=== PATIENT | male | born 1950 | race American Indian/Alaskan Native ===

== ENCOUNTER 2022-02-22 13:03 | Outpatient (CLI) | payer MEDICARE ==
[2022-02-22] MEDS ORDERED: LIDOCAINE (4%) 40 MG/ML TOPICAL SOLN 50 ML BOTTLE TP ONE (13:52)
== END 2022-02-22 13:04 | disposition home or self-care (01) ==
LOC: WOUND 13:03
PROVIDERS: ATTEND Surgery
DX: E11.621 Type 2 diabetes mellitus with foot ulcer (principal); I70.235 Atherosclerosis of native arteries of right leg with ulceration of other part of foot; L97.512 Non-pressure chronic ulcer of other part of right foot with fat layer exposed; E11.622 Type 2 diabetes mellitus with other skin ulcer; I70.233 Atherosclerosis of native arteries of right leg with ulceration of ankle; L97.312 Non-pressure chronic ulcer of right ankle with fat layer exposed; I70.238 Atherosclerosis of native arteries of right leg with ulceration of other part of lower leg; L97.812 Non-pressure chronic ulcer of other part of right lower leg with fat layer exposed; I70.234 Atherosclerosis of native arteries of right leg with ulceration of heel and midfoot; L97.412 Non-pressure chronic ulcer of right heel and midfoot with fat layer exposed; I70.243 Atherosclerosis of native arteries of left leg with ulceration of ankle; L97.322 Non-pressure chronic ulcer of left ankle with fat layer exposed; I70.245 Atherosclerosis of native arteries of left leg with ulceration of other part of foot; L97.522 Non-pressure chronic ulcer of other part of left foot with fat layer exposed; I70.244 Atherosclerosis of native arteries of left leg with ulceration of heel and midfoot; L97.422 Non-pressure chronic ulcer of left heel and midfoot with fat layer exposed; L89.510 Pressure ulcer of right ankle, unstageable; L89.610 Pressure ulcer of right heel, unstageable; L89.620 Pressure ulcer of left heel, unstageable; E11.40 Type 2 diabetes mellitus with diabetic neuropathy, unspecified; I48.91 Unspecified atrial fibrillation; N40.0 Benign prostatic hyperplasia without lower urinary tract symptoms; E78.5 Hyperlipidemia, unspecified; Z86.73 Personal history of transient ischemic attack (TIA), and cerebral infarction without residual deficits; Z87.891 Personal history of nicotine dependence; Z79.899 Other long term (current) drug therapy
CPT/HCPCS: 11042; 11045; G0463; 99204

== ENCOUNTER 2022-02-28 10:36 | Outpatient (CLI) | payer MEDICARE ==
--- NOTE | 2022-02-28 15:13 | Vascular Lab Report ---
DUPLEX DOPPLER LOWER EXTREMITY ARTERIAL, BILATERAL INDICATION / CLINICAL INFORMATION: E11.621 Type 2 diabetes mellitus with foot ulcer. TECHNIQUE: Arterial duplex examination of both lower extremities performed using B-mode, color flow a nd spectral Doppler assessment. FINDINGS: RIGHT: Common Femoral Artery: PSV 66 cm/sec. Monophasic waveform. Proximal SFA: PSV 43 cm/sec. Monophasic waveform. Mid SFA: PSV 30 cm/sec. Monophasic waveform. Distal SFA: PSV 47 cm/sec. Monophasic waveform. Popliteal Artery: PSV 104 cm/sec. Monophasic waveform. Posterior Tibial Artery: PSV 19 cm/sec. Monophasic waveform. Dorsalis Pedis Artery: Not visualized secondary to overlying bandages. LEFT: Common Femoral Artery: PSV 422 cm/sec. Monophasic waveform. Proximal SFA: PSV 105 cm/sec. Monophasic waveform. Mid SFA: PSV 35 cm/sec. Monophasic waveform. Distal SFA: PSV 21 cm/sec. Monophasic waveform. Popliteal Artery: PSV 11 cm/sec. Monophasic waveform. Posterior Tibial Artery: PSV 21 cm/sec. Monophasic waveform. Dorsalis Pedis Artery: PSV 9 cm/sec. Monophasic waveform. ADDITIONAL FINDINGS: Significant stenosis noted in the proximal left deep femoral artery. RIGHT DEBBIE: Not calculated. LEFT DEBBIE: Not calculated. IMPRESSION: 1. There is severe atherosclerotic plaque noted throughout both lower extremities. 2. Dampened velocities with monophasic waveforms noted on the right suggesting significant inflow dis ease. 3. Hemodynamically significant stenosis noted in the left common femoral artery with severely elevate d velocity and distal transition to monophasic waveforms. Ankle-Brachial Index (DEBBIE): - Calcified arteries > 1.4 - Normal = 0.9-1.4 - Mild PAD = 0.7-0.89 - Moderate PAD = 0.51-0.69 - Severe PAD < 0.5 Doppler Waveform: - Triphasic is normal. - Biphasic is abnormal if clear transition from triphasic signal along vascular tree. - Monophasic is abnormal. Scribed by: Yoly Gomez RDMS, RVT, [employer] Scribed: 02/28/2022 1:16 PM I have reviewed the images, agree with this report, and edited this report as needed. Signer Name: Donny Gauthier MD Signed: 02/28/2022 3:08 PM Workstation Name: [id number]
== END 2022-02-28 10:37 | disposition home or self-care (01) ==
LOC: VAS 10:36
PROVIDERS: ATTEND Surgery
DX: I70.213 Atherosclerosis of native arteries of extremities with intermittent claudication, bilateral legs (principal); E11.621 Type 2 diabetes mellitus with foot ulcer; L97.512 Non-pressure chronic ulcer of other part of right foot with fat layer exposed; L97.522 Non-pressure chronic ulcer of other part of left foot with fat layer exposed
CPT/HCPCS: 36415; 83036; 93925

== ENCOUNTER 2022-03-08 13:15 | Outpatient (CLI) | payer MEDICARE ==
[2022-03-08] MEDS ORDERED: LIDOCAINE (4%) 40 MG/ML TOPICAL SOLN 50 ML BOTTLE TP ONE (13:36)
[2022-03-08] MEDS ORDERED: SODIUM HYPOCHLORITE, DAKIN'S FULL STRENGTH (0.5%) 473 ML TOPICAL SOLN TP ONE (15:12)
== END 2022-03-08 13:16 | disposition home or self-care (01) ==
LOC: WOUND 13:15
PROVIDERS: ATTEND Surgery
DX: E11.621 Type 2 diabetes mellitus with foot ulcer (principal); I70.261 Atherosclerosis of native arteries of extremities with gangrene, right leg; L97.514 Non-pressure chronic ulcer of other part of right foot with necrosis of bone; L97.416 Non-pressure chronic ulcer of right heel and midfoot with bone involvement without evidence of necrosis; E11.622 Type 2 diabetes mellitus with other skin ulcer; L97.312 Non-pressure chronic ulcer of right ankle with fat layer exposed; L89.154 Pressure ulcer of sacral region, stage 4; L89.614 Pressure ulcer of right heel, stage 4; I70.262 Atherosclerosis of native arteries of extremities with gangrene, left leg; L97.522 Non-pressure chronic ulcer of other part of left foot with fat layer exposed; L97.422 Non-pressure chronic ulcer of left heel and midfoot with fat layer exposed; L97.322 Non-pressure chronic ulcer of left ankle with fat layer exposed; L89.624 Pressure ulcer of left heel, stage 4; E11.40 Type 2 diabetes mellitus with diabetic neuropathy, unspecified; I10 Essential (primary) hypertension; E78.5 Hyperlipidemia, unspecified; N40.0 Benign prostatic hyperplasia without lower urinary tract symptoms; I48.91 Unspecified atrial fibrillation; Z86.73 Personal history of transient ischemic attack (TIA), and cerebral infarction without residual deficits; Z87.891 Personal history of nicotine dependence; Z79.899 Other long term (current) drug therapy
CPT/HCPCS: 97602

== ENCOUNTER 2022-03-15 10:30 | Outpatient (CLI) | payer MEDICARE ==
[2022-03-15] MEDS ORDERED: LIDOCAINE (4%) 40 MG/ML TOPICAL SOLN 50 ML BOTTLE TP ONE (10:45)
[2022-03-15] MEDS ORDERED: SODIUM HYPOCHLORITE, DAKIN'S FULL STRENGTH (0.5%) 473 ML TOPICAL SOLN TP ONE (12:12)
== END 2022-03-15 10:31 | disposition home or self-care (01) ==
LOC: WOUND 10:30
PROVIDERS: ATTEND Surgery
DX: E11.621 Type 2 diabetes mellitus with foot ulcer (principal); I70.235 Atherosclerosis of native arteries of right leg with ulceration of other part of foot; L97.512 Non-pressure chronic ulcer of other part of right foot with fat layer exposed; I70.234 Atherosclerosis of native arteries of right leg with ulceration of heel and midfoot; L89.610 Pressure ulcer of right heel, unstageable; L97.412 Non-pressure chronic ulcer of right heel and midfoot with fat layer exposed; I70.245 Atherosclerosis of native arteries of left leg with ulceration of other part of foot; L97.522 Non-pressure chronic ulcer of other part of left foot with fat layer exposed; I70.244 Atherosclerosis of native arteries of left leg with ulceration of heel and midfoot; L89.620 Pressure ulcer of left heel, unstageable; L97.422 Non-pressure chronic ulcer of left heel and midfoot with fat layer exposed; I70.243 Atherosclerosis of native arteries of left leg with ulceration of ankle; E11.622 Type 2 diabetes mellitus with other skin ulcer; I70.233 Atherosclerosis of native arteries of right leg with ulceration of ankle; L89.510 Pressure ulcer of right ankle, unstageable; L97.312 Non-pressure chronic ulcer of right ankle with fat layer exposed; I70.238 Atherosclerosis of native arteries of right leg with ulceration of other part of lower leg; L97.812 Non-pressure chronic ulcer of other part of right lower leg with fat layer exposed; L97.322 Non-pressure chronic ulcer of left ankle with fat layer exposed; E11.40 Type 2 diabetes mellitus with diabetic neuropathy, unspecified; I48.91 Unspecified atrial fibrillation; N40.0 Benign prostatic hyperplasia without lower urinary tract symptoms; I10 Essential (primary) hypertension; E78.5 Hyperlipidemia, unspecified; Z86.73 Personal history of transient ischemic attack (TIA), and cerebral infarction without residual deficits; Z90.49 Acquired absence of other specified parts of digestive tract; Z87.891 Personal history of nicotine dependence; Z79.899 Other long term (current) drug therapy; Z79.4 Long term (current) use of insulin
CPT/HCPCS: 36415; 80048

== ENCOUNTER 2022-03-15 13:20 | Outpatient (CLI) | payer MEDICARE ==
[2022-03-15 16:20] LABS: BUN/Creatinine Ratio 20; Blood Urea Nitrogen 16 mg/dL (9-20); Calcium 9.3 mg/dL (8.4-10.2); Hemolysis Index 4
== END 2022-03-15 13:21 | disposition home or self-care (01) ==
LOC: LAB 13:20
PROVIDERS: ATTEND Surgery
DX: I70.261 Atherosclerosis of native arteries of extremities with gangrene, right leg (principal); I70.262 Atherosclerosis of native arteries of extremities with gangrene, left leg; E11.621 Type 2 diabetes mellitus with foot ulcer; L97.522 Non-pressure chronic ulcer of other part of left foot with fat layer exposed; L97.312 Non-pressure chronic ulcer of right ankle with fat layer exposed; L97.412 Non-pressure chronic ulcer of right heel and midfoot with fat layer exposed; L97.322 Non-pressure chronic ulcer of left ankle with fat layer exposed; L97.422 Non-pressure chronic ulcer of left heel and midfoot with fat layer exposed
CPT/HCPCS: 36415; 80048

== ENCOUNTER 2022-03-22 11:35 | Outpatient (CLI) | payer MEDICARE ==
[2022-03-22] MEDS ORDERED: LIDOCAINE (4%) 40 MG/ML TOPICAL SOLN 50 ML BOTTLE TP ONE (11:42)
[2022-03-22] MEDS ORDERED: SODIUM HYPOCHLORITE, DAKIN'S FULL STRENGTH (0.5%) 473 ML TOPICAL SOLN TP ONE (12:46)
== END 2022-03-22 11:36 | disposition home or self-care (01) ==
LOC: WOUND 11:35
PROVIDERS: ATTEND Surgery
DX: E11.621 Type 2 diabetes mellitus with foot ulcer (principal); I70.261 Atherosclerosis of native arteries of extremities with gangrene, right leg; L97.514 Non-pressure chronic ulcer of other part of right foot with necrosis of bone; L97.416 Non-pressure chronic ulcer of right heel and midfoot with bone involvement without evidence of necrosis; E11.622 Type 2 diabetes mellitus with other skin ulcer; L97.312 Non-pressure chronic ulcer of right ankle with fat layer exposed; L89.514 Pressure ulcer of right ankle, stage 4; L89.614 Pressure ulcer of right heel, stage 4; I70.262 Atherosclerosis of native arteries of extremities with gangrene, left leg; L97.522 Non-pressure chronic ulcer of other part of left foot with fat layer exposed; L97.422 Non-pressure chronic ulcer of left heel and midfoot with fat layer exposed; L97.322 Non-pressure chronic ulcer of left ankle with fat layer exposed; L89.624 Pressure ulcer of left heel, stage 4; E11.40 Type 2 diabetes mellitus with diabetic neuropathy, unspecified; I48.91 Unspecified atrial fibrillation; E78.5 Hyperlipidemia, unspecified; N40.0 Benign prostatic hyperplasia without lower urinary tract symptoms; I10 Essential (primary) hypertension; Z86.73 Personal history of transient ischemic attack (TIA), and cerebral infarction without residual deficits; Z89.421 Acquired absence of other right toe(s); Z90.49 Acquired absence of other specified parts of digestive tract; Z87.891 Personal history of nicotine dependence; Z79.899 Other long term (current) drug therapy; Z79.4 Long term (current) use of insulin
CPT/HCPCS: 88304; 88305; 88311

== ENCOUNTER 2022-03-29 11:10 | Outpatient (CLI) | payer MEDICARE ==
[2022-03-29] MEDS ORDERED: LIDOCAINE (4%) 40 MG/ML TOPICAL SOLN 50 ML BOTTLE TP ONE (11:18)
[2022-03-29] MEDS ORDERED: SODIUM HYPOCHLORITE, DAKIN'S FULL STRENGTH (0.5%) 473 ML TOPICAL SOLN TP ONE (12:20)
== END 2022-03-29 11:11 | disposition home or self-care (01) ==
LOC: WOUND 11:10
PROVIDERS: ATTEND Surgery
DX: E11.621 Type 2 diabetes mellitus with foot ulcer (principal); I70.261 Atherosclerosis of native arteries of extremities with gangrene, right leg; L97.514 Non-pressure chronic ulcer of other part of right foot with necrosis of bone; L97.416 Non-pressure chronic ulcer of right heel and midfoot with bone involvement without evidence of necrosis; E11.622 Type 2 diabetes mellitus with other skin ulcer; L97.312 Non-pressure chronic ulcer of right ankle with fat layer exposed; L89.514 Pressure ulcer of right ankle, stage 4; L89.614 Pressure ulcer of right heel, stage 4; L89.624 Pressure ulcer of left heel, stage 4; I70.262 Atherosclerosis of native arteries of extremities with gangrene, left leg; L97.522 Non-pressure chronic ulcer of other part of left foot with fat layer exposed; L97.422 Non-pressure chronic ulcer of left heel and midfoot with fat layer exposed; L97.322 Non-pressure chronic ulcer of left ankle with fat layer exposed; E11.40 Type 2 diabetes mellitus with diabetic neuropathy, unspecified; I48.91 Unspecified atrial fibrillation; N40.0 Benign prostatic hyperplasia without lower urinary tract symptoms; I10 Essential (primary) hypertension; E78.5 Hyperlipidemia, unspecified; Z86.73 Personal history of transient ischemic attack (TIA), and cerebral infarction without residual deficits; Z90.49 Acquired absence of other specified parts of digestive tract; Z87.891 Personal history of nicotine dependence; Z79.899 Other long term (current) drug therapy; Z79.4 Long term (current) use of insulin